=== PATIENT | male | born 1955 | race Caucasian/White ===

== ENCOUNTER 2020-08-02 14:13 | Outpatient (REF) | payer OTHER, SELFPAY | END 2020-08-02 14:14 | disposition home or self-care (01) | LOC: HO.LAB 14:13 | PROVIDERS: PCP Hospitalist; Visit Provider Internal Medicine | DX: Z20.828 Contact with and (suspected) exposure to other viral communicable diseases (principal) | CPT/HCPCS: C9803; U0003 ==

== ENCOUNTER 2021-02-12 14:12 | Emergency (ER) | payer OTHER, SELFPAY ==
[2021-02-12 14:13] VITALS: BP 165/93; PULSE 62; RESP 18; TEMP 36.6; O2SAT 98; BMI 34.7
--- NOTE | 2021-02-12 14:28 | ED_ITS ---
HPI - Skin/Abscess/Foreign Bdy General Chief complaint: Skin/Abscess/Foreign Body Stated complaint: sliver in finger Time Seen by Provider: 02/12/21 14:20 Source: patient Mode of arrival: ambulatory Limitations: no limitations History of Present Illness complaint: foreign body ( sliver in right thumbnail prior to arrival) Onset (ago): minute(s) ( prior to arrival) Tetanus up to date: yes Location: R hand ( right thumb finger under the nail) Severity: mild Severity scale (1-10): 3 Pain Consistency: constant Relieving factors: none Exacerbating factors: palpation Associated symptoms: denies other symptoms Treatments prior to arrival: none Related Data Home Medications Medication Instructions Recorded Confirmed No Known Home Meds 02/12/21 02/12/21 Allergies Allergy/AdvReac Type Severity Reaction Status Date / Time No Known Allergies Allergy Verified 02/12/21 13:14 Review of Systems Review of Systems: Constitutional : No Fever, No Chills, Cardiovascular : No Chest Pain, No SOB Respiratory : No Dyspnea Gastrointestinal : No abdominal pain Musculoskeletal : No Joint Swelling Skin : positive foreign body, no skin laceration, No rash, No surrounding erythema Neuro : No Weakness, No Numbness/tingling Psych : No SI/HI/thoughts of self injury Yes all other systems are reviewed and are negative [facility] Past Medical History Attestation statement: The following information was validated with the patient. Medical History No known health problems Physical Exam Vital Signs: Vital Signs: Last Vital Signs Temp 97.8 F 02/12/21 14:13 Pulse 62 02/12/21 14:13 Resp 18 02/12/21 14:13 BP 165/93 H 02/12/21 14:13 Pulse Ox 98 02/12/21 14:13 Body Mass Index 34.7 vital signs have been reviewed as normal and appeared to be correct. Blood pressure normal. Heart rate normal. Respiration rate normal. Temperature normal. Oxygen saturation normal. Appearance: Alert. Oriented X3. No acute distress. Head: Normal external exam. Normocephalic. Atraumatic. Eyes: PERRLA. EOMI. Conjunctiva and sclera normal. Eyelids normal. ENT: Pharynx normal. Uvula midline. Moist mucous membranes. Neck: Normal inspection. Neck supple. FROM. No adenopathy. No meningeal signs. CVS: Normal heart rate and rhythm. Respiratory: No respiratory distress. Painless inspiration. Back: Full range of motion noted. No rashes/lesion/induration/fluctuance or signs of infection noted. Skin: Skin warm and dry. Normal skin color. Normal skin turgor. No rashes/lesions/lacerations noted. Extremities: to right thumb under the nail patient has a sliver in place. No additional foreign bodies. Otherwise the finger has full range of motion no laxity or signs of infection or obvious trauma. Otherwise all other Extremities exhibit normal range of motion and nontender. Neuro: Oriented X 3. No motor deficit. No sensory deficit. Reflexes normal. Normal steady gait. No focal neuro deficits noted. Vascular: + radial pulses/+ 2 distal pedal pulses/+2 dorsalis pedis b/l. Normal cap refill. No cyanosis noted to upper extremity nails and lower extremity toes nails. Course Course Course Narrative: patient status post sliver removal. Patient tolerated procedure well. No complications. Patient's tetanus is up-to-date. Will DC h ome with instructions to return if any new or worsening symptoms to follow up with primary care provider. Patient understands agrees this plan. Procedures Foreign Body Removal Time Out Performed: yes Site: left Description of foreign body: other ( Sliver) Sedation/Analgesia: none Technique: manual removal, removal with forceps and irrigation Confirmed by:: direct visualization Complications: none Post-procedure exam: awake, alert Neurovascular: normal distal pulse, normal capillary fill, distal light touch sensation intact, distal motor function normal and no signs of compartment syndrome MDM - Skin/Abscess/Foreign Bdy Medical Records Attestation: I reviewed the patient's medical records. Discharge Plan Discharge Clinical Impression: Subungual sliver of finger Patient Disposition: Home, Self-Care Instructions: Soft Tissue Foreign Body (ED) Prescriptions: No Action No Known Home Meds RF: 0 Referrals: Minesh Pathak [Primary Care Provider] - 2 days Print Language: Nepali
== END 2021-02-12 14:43 | disposition home or self-care (01) ==
LOC: HO.ED 14:39
PROVIDERS: Emergency Provider Emergency Medicine; PCP Hospitalist
DX: S60.351A Superficial foreign body of right thumb, initial encounter (principal); X58.XXXA Exposure to other specified factors, initial encounter; Y93.9 Activity, unspecified; Y92.9 Unspecified place or not applicable; Y99.9 Unspecified external cause status
CPT/HCPCS: 99283; 99284